=== PATIENT | female | born 1990 | race Caucasian/White ===

== ENCOUNTER 2018-06-17 16:45 | Inpatient (IN) | payer OTHER ==
[~2018-06-17] VITALS: Ht 154.9 cm; Wt 81.1 kg
[~2018-06-17 16:45] MED LIST: OXYTOCIN 30 UNITS/LR 500 ML BAG IV ONE; PREN1TAB49 PO
[2018-06-17 17:04] VITALS: Ht 154.9 cm; Wt 81.1 kg
[2018-06-17] MEDS ORDERED: CEFAZOLIN 2 GM/50 ML (PMX) 50 ML IVPB SCH (17:30)
[2018-06-17] MEDS ORDERED: CARBOPROST 250 MCG INJ IM PRN (17:30)
[2018-06-17] MEDS ORDERED: METHYLERGONOVINE 0.2 MG INJ IM PRN (17:30)
[2018-06-17] MEDS ORDERED: MISOPROSTOL 200 MCG TAB PR PRN (17:30)
[2018-06-17] MEDS ORDERED: OXYTOCIN 30 UNITS/LR 500 ML IV PRN (17:30)
[2018-06-17] MEDS: LACTATED RINGER'S 1,000 ML IV SCH (17:48)
[2018-06-17 17:49] VITALS: BP 111/59; PULSE 86; RESP 16
--- NOTE | 2018-06-17 18:21 | PREAC ---
Date/Time of Note Date/Time of Note DATE: 06/17/18 TIME: 18:20 Anesthesia Eval and Record Evaluation Time Pre-Procedure Interview DATE: 06/17/18 TIME: 18:20 Age 28 Sex female NPO: 8 hrs Preoperative diagnosis Repeat in labor Planned procedure Past Medical History Past Medical History: Includes Heme: Anemia : : (5), Para: (2), Gestational age: (38) Surgery & Anesthesia Issues No known issue Meds Anticoagulation: No Beta Adriana within 24 hr: No Reason Beta Adriana not given: Pt. not on B-Adriana Reported Medications Vits W-Ca,Fe,Fa(<1MG) () 1 Tab Tablet, 1 TAB PO DAILY 07/14/12 Current Medications Lactated Ringer's 1,000 ml @ 125 mls/hr Q8H IV Last administered on 06/17/18at 17:48; Admin Dose 125 MLS/HR; Start 06/17/18 at 17:03 Cefazolin Sodium/ Dextrose 50 ml @ 100 mls/hr ONCE IVPB ; Start 06/17/18 at 17:30 Oxytocin/Lactated Ringer's 500 ml @ 125 mls/hr POST IV ; Start 06/17/18 at 17:30 Oxytocin/Lactated Ringer's 500 ml @ 0 mls/hr ONCE PRN IV .VAGINAL BLEEDING; Start 06/17/18 at 17:30 Methylergonovine Maleate (Methergine) 0.2 mg ONCE PRN IM .VAGINAL BLEEDING; Start 06/17/18 at 17:30 Carboprost Tromethamine (Hemabate) 250 mcg ONCE PRN IM .VAGINAL BLEEDING; Start 06/17/18 at 17:30 Misoprostol (Cytotec) 1,000 mcg ONCE PRN [place] .VAGINAL BLEEDING; Start 06/17/18 at 17:30 Meds reviewed: Yes Allergies Coded Allergies: No Known Allergy (Verified , 05/19/18) Allergies Reviewed: Yes Labs/Studies Labs Reviewed: Reviewed by anesthesiologist Result Diagram: 06/17/18 1745 Laboratory Tests 06/17/18 17:45 test: Positive Studies: ECG (n/a), CXR (n/a) Pre-procedure Exam Last vitals Vital Signs Date Temp Pulse Resp B/P (MAP) Pulse Ox O2 O2 Flow FiO2 Time Delivery Rate 06/17/18 98.0 86 16 111/59 Room Air 17:49 (76) Airway: Adequate mouth opening, Adequate thyromental dist Mallampati: Mallampati II Teeth: Normal Lung: Normal Heart: Normal ASA Physical Status ASA physical status: 2 Emergency: None Planned Anesthetic Neuraxial: Spinal Planned Pain Management Sub-arachniod narcotics, Parenteral pain med Pre-operative Attestations Prior to commencing anesthesia and surgery, the patient was re-evaluated, there was verification of: *The patient's identity *The results of appropriate recent lab work and preoperative vital signs *The above evaluation not changing prior to induction *Anesthetic plan, risk benefits, alternative and complications discussed with patient/family; questions answered; patient/family understands, accepts and wishes to proceed. SASHA CHAVEZ MD Jun 17, 2018 18:21
[2018-06-17] MEDS ORDERED: CITRIC ACID/NA CITRATE 30 ML CUP PO ONE (18:30)
[2018-06-17] MEDS ORDERED: ONDANSETRON 4 MG INJ IV ONE (18:30)
--- NOTE | 2018-06-17 20:24 | HP ---
Date/Time of Note Date/Time of Note DATE: 06/17/18 TIME: 20:15 OB - History Hx of Present Free Text/Dictation 28 years old 002 with single intrauterine at 39 weeks with a HADLEY of 06/24/2018 and 2 previous delivery desires repeat delivery and permanent surgical sterilization. She states good movement. She denies nausea, vomiting, shortness of breath, chest pain, headache, visual changes, vaginal bleeding or LOF. Chief Complaint: Scheduled for repeat delivery Last Menstrual Period: Sep 18, 2017 Estimated Due Date: Jun 24, 2018 : 5 Para: 2 Spontaneous : 2 Care: Good Care Ultrasounds: Normal mid trimester US Obstetrical Complications: None Medical Complications: None Past Family/Social History * Past Medical, Surgical, Family and Obstetric Histories reviewed from chart. Blood Type: A+ Rubella: not immune RPR/VDRL: Negative GBS Status: Negative HBsAG: Negative OB Admission Exam Vital Signs Vital Signs Vital Signs Date Temp Pulse Resp B/P (MAP) Pulse Ox O2 O2 Flow FiO2 Time Delivery Rate 06/17/18 98.0 86 16 111/59 Room Air 17:49 (76) Physical Exam HEENT: WNL Heart: Rhythm Normal Lungs: Clear Abdomen: WNL Extremities: Normal Membranes: Intact Heart Rate: 140's Accelerations: Accelerations Present Decelerations: No Decelerations Varibility: Moderate Contractions on Admission: None Last 72 hours Lab Results CBC & BMP 06/17/18 17:45 OB Assessment/Plan Other plan: 28 years old 2 2 with 2 previous delivery at 39 weeks desires repeat delivery and permanent surgical sterilization - FHR: No sign of metabolic acidosis- Category I - Continuous EFM, toco - CBC, blood type and screen -- Please see the orders - A+/Rubella: Non immune - GBS: Negative 2) Anemia: She is currently on ferrous sulfate 325 mg twice daily, continue 325 mg 3 times daily with vitamin The risk of delivery including but not limited to bleeding, infection, injury to other organs (bowel, bladder, ureter, vessels, nerves), injury to fe tus, blood transfusion, blood transfusion related infection, risk of anesthesia, adhesion, needs for future , removal of uterus or any other indicated surgery, permanent surgical sterilization, increased risk of ectopic if failure of procedure occurs discussed with the patient and her family. She expressed understanding. All of her questions were answered. She signed the informed consent. PHYSICIAN'S VERIFICATION OF INFORMED CONSENT The patient and her family counseled regarding the procedure, its indications, risks, potential complications and alternatives and any questions were answered. Consent was obtained. PLANNED PROCEDURE/TREATMENT: delivery with possible using vacuum/forceps, bilateral tubal ligation/bilateral salpingectomy and any other indicated surgery PHYSICIAN'S VERIFICATION OF INFORMED CONSENT FOR BLOOD TRANSFUSION: There is a reasonable possibility that blood transfusion will be necessary as a result of the patient's procedure. I have discussed the following with the patient/patient's legal patient portal representative: An explanation of the benefits and risks of the transfusion of blood or blood products and the possible alternatives. All questions have been answered to the patient's satisfaction. INFORMED CONSENT:The patient has been informed of: The nature of the proposed care, treatment, services, medications, interventions or procedures. Potential benefits, risks or side effects, including potential problems related to recuperation. The likelihood of achieving care treatment and service goals. Reasonable alternatives to the proposed care, treatment and service. The relevant risks, benefits and side effects related to alternatives, including the possible results of not receiving care, treatment and services. When indicated, any limitations on the confidentiality of information learned from or about the patient. If appropriate, the risks, benefits and alternatives of the drugs to be used for sedation/analgesia including moderate sedation. If appropriate, patient has been provided information on the risks, benefits and alternatives to the transfusion of blood and/or blood products. If appropriate, patient has been provided information regarding the Valer[employer] Kevin Blood Act. KEYSHA QUIROGA Jun 17, 2018 20:24
[2018-06-17] MEDS ORDERED: PHENYLephrine (100 MCG/ML) 5ML SYG ONE ×2 (20:32→21:18)
[2018-06-17] MEDS ORDERED: morphine SULFATE/PF (10 MG/10 ML) INJ ONE (20:32)
[2018-06-17] MEDS ORDERED: OXYTOCIN 10 UNIT INJ ONE (20:32)
[2018-06-17] MEDS ORDERED: KETOROLAC 30 MG INJ ONE (21:30)
[2018-06-17] MEDS ORDERED: ACETAMINOPHEN 500 MG TAB PO PRN (21:30)
[2018-06-17] MEDS ORDERED: HYDROmorphONE 0.5 MG/0.5 ML SYG IV PRN ×2 (21:30)
[2018-06-17] MEDS ORDERED: METOCLOPRAMIDE 10 MG INJ ONE (21:30)
[2018-06-17] MEDS ORDERED: DIPHENHYDRAMINE 50 MG INJ IV PRN (21:30)
[2018-06-17] MEDS ORDERED: ONDANSETRON 4 MG INJ IV PRN (21:30)
[2018-06-17] MEDS ORDERED: ONDANSETRON 4 MG INJ ONE (21:30)
[2018-06-17] MEDS ORDERED: NALBUPHINE HCL (10 MG/1 ML) INJ IV PRN (21:30)
[2018-06-17] MEDS ORDERED: HYDROCODONE/APAP (5/325) TAB PO PRN (21:30)
[2018-06-17] MEDS ORDERED: DEXAMETHASONE 4 MG/ML 1 ML INJ ONE (21:30)
[2018-06-17] MEDS ORDERED: NALOXONE (0.4 MG/ML) INJ IV PRN (21:30)
[2018-06-17] MEDS ORDERED: morphine 2 MG INJ IV PRN ×2 (21:30)
--- NOTE | 2018-06-17 21:49 | PAC ---
Date/Time of Note Date/Time of Note DATE: 06/17/18 TIME: 21:49 Post-Anesthesia Notes Post-Anesthesia Note Last documented vital signs Vital Signs Date Temp Pulse Resp B/P (MAP) Pulse Ox O2 O2 Flow FiO2 Time Delivery Rate 06/17/18 98.0 86 16 111/59 98 Room Air 21:49 (76) Activity: WNL Respiratory function: WNL Cardiovascular function: WNL Mental status: Baseline Pain reasonably controlled: Yes Hydration appropriate: Yes Nausea/Vomiting absent: Yes SASHA CHAVEZ MD Jun 17, 2018 21:49
[2018-06-17] MEDS: OXYTOCIN 30 UNITS/LR 500 ML IV SCH (22:41)
--- NOTE | 2018-06-17 23:13 | OPR ---
Operative Report Planned Procedure Procedure date Jun 17, 2018 Procedure(s) 1. Repeat low transverse delivery 2. Bilateral tubal ligation Performed by see signature line Communication Spec: GASPER FRANCIS MD Anesthesiologist: SASHA CHAVEZ MD Pre-procedure diagnosis 28 years old with 2 previous delivery at 39 weeks desires repeat delivery and permanent surgical sterilization [id number] Anesthesia Type: [id number] spinal Post-Procedure Post-procedure diagnosis 28 years old 2 2 with 2 previous delivery at 39 weeks desires repeat delivery and permanent surgical sterilization Findings 1. Normal uterus, fallopian tubes and ovaries 2. Viable female in cephalic presentation. 8 at one minute and 9 in 5 minutes. Weight: 3335 g - 7 pounds 6 ounces. Height 19 inches. Time of delivery: 20:54 3. Placenta with three vessel cord 4. Amniotic fluid - Clear Estimated Blood Loss: 600 - 700 mls Specimen(s) none Grafts/Implant(s) none Complication(s) none Pt Condition post procedure: stable Disposition: PACU Procedure Description INDICATION AND HISTORY: A 28 years old 2 2 with 2 previous delivery at 39 weeks desires repeat delivery and permanent surgical sterilization. The risk of delivery including but not limited to bleeding, infection, injury to other organs (bowel, bladder, ureter, vessels, nerves), injury to fetus, blood transfusion, blood transfusion related infection, risk of anesthesia, adhesion, needs for future , removal of uterus or any other indicated surgery, permanent surgical sterilization, increased risk of ectopic if failure of procedure occurs discussed with the patient and her family. She expressed understanding. All of her questions were answered. She signed the informed consent. DESCRIPTION OF OPERATION: The patient was taken to the operating room, where she was identified and the procedure was verified. The patient received two gram of Ancef 30 minutes prior to surgery. Spinal anesthesia was placed. The patient placed in the dorsal supine position with a left tilt. The heart rate was 140 bpm. The patient was then prepped and draped in the normal sterile fashion. A Pfannenstiel skin incision was made and carried down to the fascia with knife. The fascia was incised in the midline and the fascial incision was carried laterally with knife. The superior portion of the fascial incision was then grasped with Vicente clamps and tented up and dissected off the underlying rectus muscle with sharp dissection. The lower portion of the fascial incision was then made in a similar fashion. The rectus muscle was and the peritoneum was entered. The peritoneal incision was then stretched and an Jude retractor was inserted. Then, an incision was made in the lower uterine segment in a transverse fashion with a knife and extended bluntly. The was delivered atraumatically in cephalic presentation with the above findings. The umbilical cord was clamped and cut. The neonatology resuscitation team was present and the baby was handed to them. A cord blood sample was obtained for further evaluation. The placenta and membrane, which appeared normal were Removed. The uterus was exteriorized and cleared of all clot and debris. The uterus was then closed in a two layer fashion with 0-Monocryl. At the time of closure, hemostasis was noted. Then the left fallopian tube was identified and was grasped using Joanna clamp, segment of distal fallopian tube including fi mbria was double ligated with O- plain, excised and sent to pathology. Same procedure repeated at the right side. Hemostasis of stump of both fallopian tube reassured.The gutters were irrigated. The peritoneum was reapproximated with 3-0 Vicryl. The muscle was reapproximated with 3-0 Vicryl. The fascia was approximated with 0-Vicryl in a running fashion. The subcutaneous tissue was re approximated with 3-0 vicryl. The skin was closed with 4-0 Monocryl. All instruments, sponges and needle counts were correct x3. The patient tolerated the procedure well. She transferred to the recovery room in stable condition. KEYSHA QUIROGA Jun 17, 2018 23:13
[2018-06-18 00:50] VITALS: BP 100/60; PULSE 63; RESP 18
[2018-06-18] MEDS: LACTATED RINGER'S 1,000 ML IV SCH ×3 (01:03→17:03)
[2018-06-18] MEDS ORDERED: OXYTOCIN 30 UNITS/LR 500 ML IV SCH (01:05)
[2018-06-18] MEDS: DEXTROSE 5%-LR 1,000 ML IV SCH ×3 (01:05→17:05)
[2018-06-18 01:15] VITALS: BP 98/62; PULSE 65
[2018-06-18] MEDS ORDERED: LANOLIN HPA 1 PKT TOP PRN (01:30)
[2018-06-18] MEDS ORDERED: METHYLERGONOVINE 0.2 MG INJ IM PRN (01:30)
[2018-06-18] MEDS ORDERED: CARBOPROST 250 MCG INJ IM PRN (01:30)
[2018-06-18] MEDS ORDERED: OXYTOCIN 30 UNITS/LR 500 ML IV PRN (01:30)
[2018-06-18] MEDS ORDERED: MAGNESIUM HYDROXIDE 30ML CUP PO PRN (01:30)
[2018-06-18] MEDS ORDERED: METHYLERGONOVINE 0.2 MG TAB PO PRN (01:30)
[2018-06-18] MEDS ORDERED: MISOPROSTOL 200 MCG TAB PR PRN (01:30)
[2018-06-18 01:45] VITALS: BP 95/60; PULSE 62; RESP 18
[2018-06-18] MEDS: OXYTOCIN 30 UNITS/LR 500 ML IV SCH (03:04)
[2018-06-18] MEDS: KETOROLAC 30 MG INJ IV PRN ×2 (03:10→09:58)
[2018-06-18 08:00] VITALS: BP 93/52; RESP 18
--- NOTE | 2018-06-18 08:45 | PN ---
Date/Time of Note Date/Time of Note DATE: 06/18/18 TIME: 08:43 OB Subjective Subjective Subjective POD#1 Patient is doing well. She denies nausea, vomiting, shortness of breath, chest pain, headache. She has been ambulating without difficulty, tolerating regular diet. Pain is well controlled on current medications OB Objective Objective Objective VS - Last 72 Hours, by Label Date Temp Pulse Resp B/P (MAP) Pulse Ox O2 O2 Flow FiO2 Time Delivery Rate 06/18/18 98.0 62 18 95/60 (72) Room Air 01:45 06/18/18 98.0 65 98/62 (74) 92 Room Air 01:15 06/18/18 98.3 63 18 100/60 97 Room Air 00:50 (73) 06/17/18 98.0 86 16 111/59 Room Air 17:49 (76) General: AAO X 3, comfortable, NAD, appropriate mood and affect. Heart: RRR +S1, +S2, no murmurs. Lungs: Clear to auscultation (B/L), no rales, rhonchi or wheezing. ABD: +BS. Soft, non-tender. Uterus 2 cm below umbilicus Incision: Clear, dry, intact. No erythema, drainage or induration. Flank: No CVA tenderness (B/L) LE: Mild edema. No clubbing, cyanosis, thigh or calf tenderness (B/L). Homans 'sign is negative OB Assessment/Plan Other plan: 28-year-old s/p repeat delivery and bilateral tubal ligation at 39 weeks. POD#1 - AF, VSS - Baby is doing well, at bed side. She is bonding well - Continue current management - KEYSHA QUIROGA Jun 18, 2018 08:45
[2018-06-18] MEDS: SENNA/DOCUSATE NA (8.6MG/50MG) TAB PO SCH ×2 (09:58→21:03)
[2018-06-18] MEDS ORDERED: DIPHTH/TET/ACEL PERTUSS (ADULT) 0.5 ML VIAL IM* ONE (11:00)
[2018-06-18 12:00] VITALS: BP 92/52; PULSE 62; RESP 16
[2018-06-18] MEDS ORDERED: MEASLES,MUMPS,RUBELLA VACCINE INJ SC* ONE (14:30)
[2018-06-18 16:00] VITALS: BP 92/49; PULSE 68; RESP 18
[2018-06-18] MEDS: HYDROCODONE/APAP (5/325) TAB PO SCH (21:10)
[2018-06-19] MEDS: LACTATED RINGER'S 1,000 ML IV SCH ×2 (01:03→09:03)
[2018-06-19] MEDS: DEXTROSE 5%-LR 1,000 ML IV SCH ×2 (01:05→09:05)
[2018-06-19] MEDS: HYDROCODONE/APAP (5/325) TAB PO SCH ×3 (05:52→21:58)
[2018-06-19 08:00] VITALS: BP 100/68; PULSE 76; RESP 20
[2018-06-19] MEDS: SENNA/DOCUSATE NA (8.6MG/50MG) TAB PO SCH ×2 (09:38→21:11)
[2018-06-19] MEDS: HYDROCODONE/APAP (5/325) TAB PO PRN (11:42)
--- NOTE | 2018-06-19 12:09 | PN ---
Date/Time of Note Date/Time of Note DATE: 06/19/18 TIME: 12:08 OB Subjective Subjective Subjective POD#2 Patient is doing well. She denies nausea, vomiting, shortness of breath, chest pain, headache. She has been ambulating without difficulty, tolerating regular diet. Pain is well controlled on current medications OB Objective Objective Objective Vital Signs Date Temp Pulse Resp B/P (MAP) Pulse Ox O2 O2 Flow FiO2 Time Delivery Rate 06/19/18 98.2 76 20 100/68 Room Air 08:00 (79) 06/18/18 96 16:00 General: AAO X 3, comfortable, NAD, appropriate mood and affect. Heart: RRR +S1, +S2, no murmurs. Lungs: Clear to auscultation (B/L), no rales, rhonchi or wheezing. ABD: +BS. Soft, non-tender. Uterus 2 cm below umbilicus Incision: Clear, dry, intact. No erythema, drainage or induration. Flank: No CVA tenderness (B/L) LE: Mild edema. No clubbing, cyanosis, thigh or calf tenderness (B/L). Homans 'sign is negative OB Assessment/Plan Other plan: 28-year-old s/p repeat delivery and bilateral tubal ligation at 39 weeks. POD#2 - AF, VSS - Baby is doing well, at bed side. She is bonding well - Continue current management - Discharge home tomorrow - Prescription and instruction given - Follow-up in 1 and 6 weeks. - KEYSHA QUIROGA Jun 19, 2018 12:09
--- NOTE | 2018-06-19 12:10 | DS ---
Date/Time of Note Date/Time of Note DATE: 06/19/18 TIME: 12:09 Obstetrical Discharge Record Final Diagnosis Final Diagnosis: Term delivered Other Final Diagnosis 28-year-old s/p repeat delivery and bilateral tubal ligation at 39 weeks. POD#2. course was unremarkable. She is ambulating and tolerating regular diet. She is voiding without difficulty. Pain is controlled on current medication. - AF, VSS - Baby is doing well, at bed side. She is bonding well - Continue current management - Discharge home tomorrow - Prescription and instruction given - Follow-up in 1 and 6 weeks. - Section Section: Repeat Condition on Discharge Physical Assessment Last Vitals: Vital Signs Date Temp Pulse Resp B/P (MAP) Pulse Ox O2 O2 Flow FiO2 Time Delivery Rate 06/19/18 98.2 76 20 100/68 Room Air 08:00 (79) 06/18/18 96 16:00 Voiding: Yes Bowel Movement: Yes Breast: Soft, non-tender Calf Tenderness: No Patient Condition: Stable KEYSHA QUIROGA Jun 19, 2018 12:10
[2018-06-19] MEDS: IBUPROFEN 800 MG TAB PO SCH ×2 (14:49→21:58)
[2018-06-19 16:19] VITALS: BP 118/70; PULSE 78; RESP 16
[2018-06-19 19:40] VITALS: BP 99/54; PULSE 72; RESP 19
[2018-06-20] MEDS: HYDROCODONE/APAP (5/325) TAB PO PRN (02:15)
[2018-06-20 04:15] VITALS: BP 104/56; PULSE 77; RESP 20
[2018-06-20] MEDS: HYDROCODONE/APAP (5/325) TAB PO SCH (05:54)
[2018-06-20] MEDS: IBUPROFEN 800 MG TAB PO SCH (05:54)
[2018-06-20 08:00] VITALS: BP 104/69; PULSE 71; RESP 18
[2018-06-20] MEDS ORDERED: MEASLES,MUMPS,RUBELLA VACCINE INJ SC* ONE (09:00)
[2018-06-20] MEDS ORDERED: DIPHTH/TET/ACEL PERTUSS (ADULT) 0.5 ML VIAL IM* ONE (09:00)
[2018-06-20] MEDS: SENNA/DOCUSATE NA (8.6MG/50MG) TAB PO SCH (09:17)
== END 2018-06-20 15:55 | disposition home or self-care (01) | DRG 785 ==
LOC: L-D 16:45 → PP1 06-18 00:47
PROVIDERS: ADMIT Obstetrics & Gynecology; ATTEND Obstetrics & Gynecology
PROC: 0UB70ZZ Excision of Bilateral Fallopian Tubes, Open Approach (ICD-10-PCS; 2018-06-17)
PROC: 10D00Z1 Extraction of Products of Conception, Low, Open Approach (ICD-10-PCS; principal; 2018-06-17 19:30)
DX: O34.211 Maternal care for low transverse scar from previous cesarean delivery (principal); O99.02 Anemia complicating childbirth; D64.9 Anemia, unspecified; Z3A.39 39 weeks gestation of pregnancy; Z37.0 Single live birth; Z30.2 Encounter for sterilization
CPT/HCPCS: 85025; 85610; 85730; 86592; 86850; 86900; 86901; 87340; 88302; 99464; J0690; J1100; J1885; J2274; J2370; J2405; J2590; J2765; J7120; J7121